=== PATIENT | female | born 1980 | race Two or more races ===

== ENCOUNTER 2023-01-04 10:30 | Outpatient (CLI) | payer OTHER | END 2023-01-04 10:43 | disposition home or self-care (01) | LOC: RAD 10:30 | PROVIDERS: ATTEND Orthopaedic Surgery | DX: M25.571 Pain in right ankle and joints of right foot (principal); M25.572 Pain in left ankle and joints of left foot; J32.8 Other chronic sinusitis ==

== ENCOUNTER 2023-08-10 06:05 | Outpatient (CLI) | payer OTHER ==
[2023-08-10 07:27] LABS: HEMATOCRIT 45.9 % (39.0-48.0); HEMOGLOBIN 15.6 g/dL (13-16.00); MEAN CELL VOLUME 87.5 fL (80.0-100.00); MEAN CORPUSCULAR HEMOGLOBIN 29.8 pg (27.00-32.0); MEAN CORPUSCULAR HGB CONC 34.1 g/dl (32.0-36.0); PLATELET COUNT 293 K/uL (150-450); RED BLOOD COUNT 5.24 M/uL (4.00-6.00); RED CELL DISTRIBUTION WIDTH 14.2 % (11.5-14.5)
[2023-08-10 07:47] LABS: PARTIAL THROMBOPLASTIN TIME 25.9 SECONDS (22.0-34.0)
[2023-08-10 08:00] LABS: BILIRUBIN TOTAL 0.27 mg/dL (0.3-1.2); CALCIUM 8.7 mg/dL (8.5-10.1); CREATININE SERUM 0.93 mg/dL (0.70-1.30); GFR 89.1; GLOBULINA 3.3 G/DL (2.4-3.5); POTASSIUM 3.71 mEq/L (3.5-5.1); TOTAL PROTEIN 7.3 gm/dL (6.4-8.2)
[2023-08-10 08:07] LABS: COL EPI 106 SECONDS (82-175)
== END 2023-08-10 06:06 | disposition home or self-care (01) ==
LOC: LAB 06:05
PROVIDERS: ATTEND Orthopaedic Surgery
DX: D64.9 Anemia, unspecified (principal); E78.5 Hyperlipidemia, unspecified; D68.8 Other specified coagulation defects; N39.0 Urinary tract infection, site not specified; B95.62 Methicillin resistant Staphylococcus aureus infection as the cause of diseases classified elsewhere

== ENCOUNTER 2023-12-18 06:26 | Outpatient (CLI) | payer OTHER ==
[2023-12-18 07:14] LABS: HEMATOCRIT 43.9 % (39.0-48.0); HEMOGLOBIN 15.3 g/dL (13-16.00); MEAN CORPUSCULAR HEMOGLOBIN 30.3 pg (27.00-32.0); MEAN CORPUSCULAR HGB CONC 34.9 g/dl (32.0-36.0); PLATELET COUNT 281 K/uL (150-450); RED BLOOD COUNT 5.05 M/uL (4.00-6.00); RED CELL DISTRIBUTION WIDTH 14.5 % (11.5-14.5)
[2023-12-18 07:42] LABS: INR < 0.93; PARTIAL THROMBOPLASTIN TIME 26.4 SECONDS (22.0-34.0); PROTHROMBIN TIME 9.7 SECONDS (9.0-11.5)
[2023-12-18 07:45] LABS: PH,URINE 5.5 (5.0-8.0); URINE APPEARANCE Clear; URINE BILIRRUBIN Negative (NEGATIVE); URINE BLOOD Negative; URINE COLOR Yellow; URINE GLUCOSE Negative (NEGATIVE); URINE LEUKOCYTE Negative; URINE NITRATE Negative; URINE PROTEIN Negative (NEGATIVE); URINE UROBILINOGEN 0.2 E.U./dl
[2023-12-18 07:46] LABS: URINE BACTERIA 7.5 uL (0.0-1933); URINE EPITHELIAL CELLS 1.6 uL (0.0-38.8); URINE RBC 3.1 uL (0.0-20.8); URINE WBC 3.3 uL (0.0-23.2)
[2023-12-18 07:52] LABS: ALBUMIN 3.9 gm/dL (3.4-5.0); BILIRUBIN TOTAL 0.3 mg/dL (0.3-1.2); CREATININE SERUM 0.96 mg/dL (0.70-1.30); GFR 85.49; GLOBULINA 3.3 G/DL (2.4-3.5); POTASSIUM 3.64 mEq/L (3.5-5.1); TOTAL PROTEIN 7.2 gm/dL (6.4-8.2)
[2023-12-18 08:19] LABS: COL EPI 101 SECONDS (82-175)
== END 2023-12-18 06:27 | disposition home or self-care (01) ==
LOC: LAB 06:26
PROVIDERS: ATTEND Orthopaedic Surgery
DX: D64.9 Anemia, unspecified (principal); D68.8 Other specified coagulation defects; N39.0 Urinary tract infection, site not specified; E11.9 Type 2 diabetes mellitus without complications; A49.02 Methicillin resistant Staphylococcus aureus infection, unspecified site; I10 Essential (primary) hypertension; Z76.89 Persons encountering health services in other specified circumstances

== ENCOUNTER 2024-01-02 05:15 | Day surgery (SDC) | payer OTHER ==
[~2024-01-02 05:15] MED LIST: GRALISE600 MG PO; METFORMIN HCL500 M3 PO; TEMAZEPAM15 MG PO; TRAM1TAB98 PO; WELLBUTRIN XL150 M1 PO
[2024-01-02] MEDS ORDERED: CEFAZOLIN SODIUM 1,000 MG VIAL ONE (07:08)
[2024-01-02] MEDS ORDERED: BUPIVACAINE HCL/PF 0.5% 30ML ML ONE (07:28)
[2024-01-02] MEDS ORDERED: BUPIVACAINE HCL/PF 0.5% 5MG/ML VIAL IJ SCH (09:15)
[2024-01-02] MEDS ORDERED: ISOPROPYL ALCOHOL 30 ML OUNCE TOP SCH (09:15)
[2024-01-02] MEDS ORDERED: CEFAZOLIN SODIUM 1,000 MG VIAL IV SCH (09:15)
[2024-01-02] MEDS ORDERED: CEFTRIAXONE SODIUM 2,000 MG VIAL IV ONE (13:15)
[2024-01-02] MEDS ORDERED: CEFTRIAXONE SODIUM 2,000 MG VIAL ONE (14:11)
== END 2024-01-02 17:20 | disposition home or self-care (01) ==
LOC: CIR.AMB 05:15
PROVIDERS: ATTEND Orthopaedic Surgery
DX: M76.821 Posterior tibial tendinitis, right leg (principal); M76.71 Peroneal tendinitis, right leg; Z20.822 Contact with and (suspected) exposure to COVID-19
CPT/HCPCS: 28300; 20902; L8699

== ENCOUNTER 2024-02-28 14:18 | Outpatient (CLI) | payer OTHER | END 2024-02-28 14:56 | disposition home or self-care (01) | LOC: RAD 14:18 | PROVIDERS: ATTEND Orthopaedic Surgery | DX: M25.571 Pain in right ankle and joints of right foot (principal) ==